=== PATIENT | female | born 1955 | race Hispanic/Latino ===

== ENCOUNTER 2021-05-31 19:38 | Emergency (ER) | payer SELFPAY ==
[~2021-05-31] VITALS: Ht 157.5 cm; Wt 81.6 kg
== END 2021-05-31 20:10 | disposition home or self-care (01) ==
LOC: ER 19:47
DX: I10 Essential (primary) hypertension (principal); E11.9 Type 2 diabetes mellitus without complications; E78.5 Hyperlipidemia, unspecified; Z95.810 Presence of automatic (implantable) cardiac defibrillator
CPT/HCPCS: 99282